=== PATIENT | male | born 1975 | race African-American/Black ===

== ENCOUNTER 2019-11-12 19:13 | Emergency (ER) | payer OTHER ==
[~2019-11-12] VITALS: Ht 182.9 cm; Wt 131.5 kg
[~2019-11-12 19:13] MED LIST: ASPIRIN325 PO; CIPRO500 MG PO; COUMADIN 1MG TAB1 M1 PO; NORCO 5-325 TA1 EACH PO; PHENERGAN 25 MG25 M1 PO; ZANTAC 150MG T150 M1 PO
[2019-11-12 19:17] VITALS: BP 140/84
[2019-11-12] MEDS ORDERED: CYCLOBENZAPRINE5 MG PO (22:44)
[2019-11-12] MEDS ORDERED: NORCO 5-325 TA1 EAC1 PO (22:45)
== END 2019-11-12 22:53 | disposition home or self-care (01) ==
LOC: ER 19:13
DX: M54.6 Pain in thoracic spine (principal); I48.91 Unspecified atrial fibrillation; G43.909 Migraine, unspecified, not intractable, without status migrainosus; Z87.891 Personal history of nicotine dependence; Z88.1 Allergy status to other antibiotic agents; V89.2XXA Person injured in unspecified motor-vehicle accident, traffic, initial encounter; Y93.89 Activity, other specified; Y92.488 Other paved roadways as the place of occurrence of the external cause; Y99.8 Other external cause status